=== PATIENT | female | born 1985 | race Two or more races ===

== ENCOUNTER 2020-05-09 09:06 | Day surgery (SDC) | payer OTHER, BC ==
[~2020-05-09] VITALS: Ht 160 cm; Wt 61.5 kg
[2020-05-09] MEDS ORDERED: LACTATED RINGERS 1,000 ML IV SCH (09:36)
[2020-05-09] MEDS ORDERED: CELE200C PO (09:48)
[2020-05-09] MEDS ORDERED: LIDOCAINE 1%, 20ML ONE (09:56)
[2020-05-09] MEDS ORDERED: BUPIVACAINE/PF 0.5% ONE ×2 (09:56→12:12)
[2020-05-09] MEDS ORDERED: ACETAMINOPHEN 500 MG TABLET PO ONE (10:00)
[2020-05-09] MEDS ORDERED: CHLORHEXIDINE 15 ML UDC MM ONE (10:00)
[2020-05-09] MEDS ORDERED: SCOPOLAMINE 1MG PATCH TD SCH (10:00)
[2020-05-09] MEDS ORDERED: NORE-101 PO (10:15)
[2020-05-09] MEDS ORDERED: FOLI-17 PO (10:15)
[2020-05-09] MEDS ORDERED: GABA100C PO (10:15)
[2020-05-09] MEDS ORDERED: METH25VI63 PO (10:15)
[2020-05-09] MEDS ORDERED: PRED5TAB PO (10:15)
[2020-05-09] MEDS ORDERED: CYCL1DRO TP (10:15)
[2020-05-09] MEDS ORDERED: HYDR200T72 PO (10:15)
[2020-05-09] MEDS ORDERED: OXYC-307 PO (10:15)
[2020-05-09] MEDS ORDERED: TOFA11TA PO (10:15)
[2020-05-09] MEDS ORDERED: MONT10TA6 PO (10:15)
[2020-05-09] MEDS ORDERED: TIZA2TAB4 PO (10:15)
[2020-05-09] MEDS ORDERED: METH25VI62 PO (10:15)
[2020-05-09] MEDS ORDERED: FAMO20TA7 PO (10:15)
[2020-05-09 10:16] VITALS: BP 133/87
[2020-05-09] MEDS ORDERED: FENTANYL PF 100 MCG/2ML ONE ×2 (10:35→12:47)
[2020-05-09] MEDS ORDERED: MIDAZOLAM 1 MG/ML, 2ML ONE (10:35)
[2020-05-09] MEDS ORDERED: ONDANSETRON 2MG/ML, 2ML IVPush PRN (12:00)
[2020-05-09] MEDS ORDERED: PROMETHAZINE 25 MG SUPP PR PRN (12:00)
[2020-05-09] MEDS ORDERED: MEPERIDINE/PF 25MG/0.5ML IVPush PRN (12:00)
[2020-05-09] MEDS ORDERED: LORazepam 2 MG/ML, 1ML IVPush PRN (12:00)
[2020-05-09] MEDS ORDERED: OXYcodone 5 MG/5 ML ORAL.SOL UDC PO PRN (12:00)
[2020-05-09] MEDS ORDERED: PROMETHAZINE 25 MG/ML, 1ML IVPush PRN (12:00)
[2020-05-09] MEDS ORDERED: ONDANSETRON 2MG/ML, 2ML ONE (12:12)
[2020-05-09] MEDS ORDERED: LIDOCAINE-MPF 2% ,5ML ONE (12:12)
[2020-05-09] MEDS ORDERED: PROPOFOL 10 MG/ML, 20ML ONE (12:12)
[2020-05-09] MEDS ORDERED: DEXAMETHASONE 4 MG/ML, 1ML ONE (12:12)
[2020-05-09] MEDS ORDERED: CEFAZOLIN 1,000 MG ONE (12:12)
[2020-05-09] MEDS ORDERED: OXYcodone 5 MG/5 ML ORAL.SOL UDC ONE (12:47)
[2020-05-09] MEDS: FENTANYL PF 100 MCG/2ML IV PRN ×2 (12:55→13:05)
[2020-05-09] MEDS ORDERED: HYDROmorphone 1 MG/ML, 1ML INJ ONE ×2 (13:16→13:42)
[2020-05-09] MEDS: HYDROmorphone 1 MG/ML, 1ML INJ IVPush PRN ×4 (13:20→13:50)
[2020-05-09] MEDS ORDERED: KETOROLAC 30 MG/1 ML ONE (14:50)
[2020-05-09] MEDS ORDERED: KETOROLAC 30 MG/1 ML IVPush SCH (15:00)
== END 2020-05-09 15:25 | disposition home or self-care (01) ==
LOC: OUT 09:06
PROVIDERS: ATTEND Orthopaedic Surgery
DX: M24.672 Ankylosis, left ankle (principal); Z11.59 Encounter for screening for other viral diseases; M65.872 Other synovitis and tenosynovitis, left ankle and foot; M25.572 Pain in left ankle and joints of left foot; M19.90 Unspecified osteoarthritis, unspecified site; Z79.899 Other long term (current) drug therapy; Z72.89 Other problems related to lifestyle; Z87.891 Personal history of nicotine dependence
CPT/HCPCS: 27680; 28238; 29898; 36415; 64447; 87635; C1713; J0690; J1100; J1170; J2250; J2405; J2704; J3010; J7120